=== PATIENT | female | born 1950 | race Caucasian/White ===

== ENCOUNTER 2018-08-17 17:38 | Inpatient (IN) | payer OTHER ==
[~2018-08-17] VITALS: Ht 162.6 cm; Wt 93.4 kg
[2018-08-18] MEDS ORDERED: HUMIRA PEN40 MG/0.1 SUBCUTANEO (14:17)
[2018-08-18] MEDS ORDERED: NORVASC5 MG (14:18)
[2018-09-09] MEDS ORDERED: LEVSIN/SL0.125 MG SL (08:25)
[2018-09-09] MEDS ORDERED: INTESTINEX680 M1 PO (08:25)
[2018-09-09] MEDS ORDERED: PROTONIX40 MG PO (08:26)
== END 2018-09-09 16:43 | disposition home or self-care (01) | DRG 757 ==
LOC: ER 17:38 → SURH 08-18 10:01 → SURG 08-18 10:01 → SURH 09-02 17:08
PROVIDERS: ADMIT Surgery
PROC: BW21YZZ Computerized Tomography (CT Scan) of Abdomen and Pelvis using Other Contrast (ICD-10-PCS; 2018-08-18)
PROC: 4A12X4Z Monitoring of Cardiac Electrical Activity, External Approach (ICD-10-PCS; 2018-08-18)
PROC: 3E0336Z Introduction of Nutritional Substance into Peripheral Vein, Percutaneous Approach (ICD-10-PCS; 2018-08-18)
PROC: 02HV33Z Insertion of Infusion Device into Superior Vena Cava, Percutaneous Approach (ICD-10-PCS; 2018-08-18)
PROC: 0J9C30Z Drainage of Pelvic Region Subcutaneous Tissue and Fascia with Drainage Device, Percutaneous Approach (ICD-10-PCS; principal; 2018-08-25)
DX: N73.0 Acute parametritis and pelvic cellulitis (principal); A41.9 Sepsis, unspecified organism; K57.20 Diverticulitis of large intestine with perforation and abscess without bleeding; J98.11 Atelectasis; I10 Essential (primary) hypertension; L73.2 Hidradenitis suppurativa; K76.0 Fatty (change of) liver, not elsewhere classified; D72.829 Elevated white blood cell count, unspecified; Z16.12 Extended spectrum beta lactamase (ESBL) resistance; B96.29 Other Escherichia coli [E. coli] as the cause of diseases classified elsewhere; B95.2 Enterococcus as the cause of diseases classified elsewhere